=== PATIENT | female | born 1975 | race Caucasian/White ===

== ENCOUNTER 2017-12-17 21:51 | Emergency (ER) | payer MEDICAID ==
[~2017-12-17] VITALS: Ht 154.9 cm; Wt 70.3 kg
[2017-12-17 21:57] VITALS: BP 136/78
[2017-12-17 23:39] VITALS: BP 120/63
== END 2017-12-17 23:39 | disposition home or self-care (01) ==
LOC: MED 21:51
DX: M94.0 Chondrocostal junction syndrome [Tietze] (principal)
CPT/HCPCS: 71045; 93005; 99284; Q0092